=== PATIENT | female | born 1960 | race Hispanic/Latino ===

== ENCOUNTER 2020-10-11 19:23 | Emergency (ER) | payer SELFPAY ==
[~2020-10-11] VITALS: Ht 157.5 cm; Wt 63.5 kg
[2020-10-11 19:43] VITALS: BP 136/74
[2020-10-11 20:32] LABS: BASOPHILS % (AUTO) 0.5 % (0.0-5.0); EOSINOPHILS % (AUTO) 3.1 % (0.0-8.0); HEMATOCRIT 37.5 % (36-48); LYMPHOCYTES % (AUTO) 37.1 % (21.0-51.0); MEAN CORPUSCULAR HEMOGLOBIN 32.6 pg (27.0-33.0); MEAN CORPUSCULAR HGB CONC 33.6 g/dL (32.0-36.0); MEAN CORPUSCULAR VOLUME 96.9 fL (79-99); PLATELET COUNT (AUTO) 162 K/uL (130-400); RED BLOOD CELL COUNT(AUTO) 3.87 MIL/uL (4.00-5.50); RED CELL DISTRIBUTION WIDTH 12.7 % (11.0-15.5); WHITE BLOOD COUNT (AUTO) 5.8 K/uL (4.8-10.8)
[2020-10-11 20:35] VITALS: BP 154/73
[2020-10-11 20:37] LABS: APPEARANCE,URINE Cloudy (CLEAR); BILIRUBIN,URINE Negative (NEGATIVE); COLOR,URINE Yellow (YELLOW); GLUCOSE, URINE (UA) >=1000 mg/dL (NEGATIVE); KETONES,URINE Trace mg/dL (NEGATIVE); LEUKOCYTE ESTERASE ,URINE Moderate (NEGATIVE); NITRATE,URINE Negative (NEGATIVE); OCCULT BLOOD,URINE Negative (NEGATIVE); PROTEIN,URINE Negative (NEGATIVE)
[2020-10-11 20:43] LABS: CREATININE 1.2 mg/dL (0.5-1.5); POTASSIUM 4.2 mmol/L (3.5-5.1)
[2020-10-11 20:45] LABS: INR 0.94 (0.85-1.15); PROTHROMBIN TIME 10.3 SEC (9.6-11.6)
[2020-10-11 20:47] LABS: BACTERIA,URINE Moderate /HPF (None Seen); MUCUS,URINE Few LPF (None Seen); SQUAMOUS EPITHELIAL CELL,UR Few /HPF (0-2); WBC,URINE 26-50 /HPF (0-1)
[2020-10-11 20:48] LABS: ALBUMIN 3.2 g/dL (3.5-5.0); BILIRUBIN,TOTAL 0.4 mg/dL (0.2-1.0); TOTAL PROTEIN, SERUM 8.1 g/dL (6.0-8.3)
[2020-10-11] MEDS ORDERED: LIDOP TP (21:25)
[2020-10-11] MEDS ORDERED: CEPH500B PO (21:25)
[2020-10-11] MEDS ORDERED: CYCL10TA7 PO (21:25)
[2020-10-11] MEDS ORDERED: MELO7.5T12 PO (21:25)
[2020-10-11] MEDS ORDERED: ORPHENADRINE CITRATE 30 MG/ML ML IV ONE (21:30)
[2020-10-11] MEDS ORDERED: CEPHALEXIN 500 MG CAPSULE PO ONE (21:30)
[2020-10-11] MEDS ORDERED: KETOROLAC 30MG VIAL (30MG/ML) IV ONE (21:30)
[2020-10-11] MEDS ORDERED: CEPHALEXIN 500 MG CAPSULE ONE (21:41)
[2020-10-11] MEDS ORDERED: KETOROLAC 30MG VIAL (30MG/ML) ONE (21:42)
[2020-10-11] MEDS ORDERED: ORPHENADRINE CITRATE 30 MG/ML ML ONE (21:42)
[2020-10-11 21:57] VITALS: BP 128/70
== END 2020-10-11 22:11 | disposition home or self-care (01) ==
LOC: EDH 20:06
DX: N39.0 Urinary tract infection, site not specified (principal); R07.89 Other chest pain; M62.830 Muscle spasm of back; E78.5 Hyperlipidemia, unspecified; E11.9 Type 2 diabetes mellitus without complications; Z79.1 Long term (current) use of non-steroidal anti-inflammatories (NSAID)
CPT/HCPCS: 36415; 71045; 80053; 81001; 84484; 85025; 85610; 87077; 87088; 87186; 93005; 96374; 96375; 99285; J1885; J2360

== ENCOUNTER 2022-02-21 11:54 | Emergency (ER) | payer OTHER ==
[~2022-02-21] VITALS: Ht 157.5 cm; Wt 63.5 kg
[~2022-02-21 11:54] MED LIST: CEPH500B PO; CYCL-309 PO; LIDOP TP; MELO7.5T12 PO
[2022-02-21 12:19] VITALS: BP 123/64
[2022-02-21] MEDS ORDERED: ACETAMINOPHEN 500 MG TABLET PO ONE (14:00)
[2022-02-21] MEDS ORDERED: IBUP-2070 PO (14:02)
== END 2022-02-21 14:30 | disposition home or self-care (01) ==
LOC: EDH 11:54
DX: M25.512 Pain in left shoulder (principal); M25.511 Pain in right shoulder; M79.641 Pain in right hand; M79.642 Pain in left hand; E11.9 Type 2 diabetes mellitus without complications; E78.00 Pure hypercholesterolemia, unspecified; I10 Essential (primary) hypertension; Z79.1 Long term (current) use of non-steroidal anti-inflammatories (NSAID); Z79.899 Other long term (current) drug therapy
CPT/HCPCS: 29125; 99282